=== PATIENT | female | born 1950 | race Caucasian/White ===

== ENCOUNTER 2018-04-25 17:38 | Observation (INO) | payer MEDICARE, OTHER ==
--- NOTE | 2018-04-25 19:09 | RAD ---
PORTABLE CHEST: 04/25/18 HISTORY: Pain, status post fall. Heart size and mediastinum are within normal limits. Lungs are clear of any infiltrates. I do not afshin reciate any rib fractures. IMPRESSION: No active intrathoracic disease. POS: [facility]
[2018-04-25 19:29] LABS: #Basophils 0.1 thou/uL (0.0-0.2); #Eosinphils 0.1 thou/uL (0.0-0.7); #Lymphocytes 0.8 thou/uL (1.20-3.40); #Monocytes 0.7 thou/uL (0.11-0.59); #Neutrophils 12.8 thou/uL (1.40-6.50); %Basophils 0.4 % (0.0-1.0); %Eosinophils 0.4 % (0.0-10.0); %Lymphocytes 5.2 % (21.0-51.0); %Monocytes 4.9 % (0.0-10.0); Hemoglobin 11.7 g/dL (12.0-16.0); Mean Corpuscular HGB CONC 34.2 g/dL (32.0-36.0); Mean Corpuscular Hemoglobin 32.3 pg (27.0-31.0); Mean Corpuscular Volume 94.4 fL (78.0-98.0); Mean Platelet Volume 8.1 fL (7.4-10.4); Platelet Count 202 thou/uL (130-400); RBC Distribution Width 11.7 % (11.5-14.5); Red Blood Cell (RBC) Count 3.63 mill/uL (4.20-5.40); White Blood Cell (WBC) Count 14.4 thou/uL (4.8-10.8)
--- NOTE | 2018-04-25 19:33 | RAD ---
LEFT KNEE FOUR VIEWS: 04/25/18 HISTORY: Fall while walking across a cattle guard. Knee pain. There are some arthritic changes of the knee. Very small joint effusion present. On the cross-table lateral view, there is some irregularity to one of the anterior margin of one of the femoral condyles . It is probably at least partially projectional. Possibility there has been some type of impaction i njury should be considered. Minimal if any joint effusion is present. It is difficult on any of the a dditional projections to show this abnormality as to whether it originates on the medial or lateral s meseret. IMPRESSION: Lack of a normal spherical contour to one of the anterior femoral condyles raising the possibility of some type of impaction type injury. There is questionable minimal joint effusion present. If interna l derangement is clinically suspected, MRI would be helpful in further assessment. Clinical correlati on as to any pain anteriorly that would correspond to these findings. There does appear to be soft ti ssue swelling medially and changes that would suggest a hematoma and therefore the femoral changes ar e more suspicious. POS: [facility]
[2018-04-25 19:36] LABS: PTT 22.9 SEC (22.9-36.1); Prothrombin Time 13.5 SEC (12.0-14.7)
[2018-04-25] MEDS ORDERED: Morphine 4 MG/ML VIAL ONE (19:37)
[2018-04-25 19:50] LABS: ALT (SGPT) 9 U/L (8-55); AST (SGOT) 12 U/L (5-34); Albumin 3.6 g/dL (3.4-4.8); Alkaline Phosphatase 69 U/L (40-150); Anion Gap 13 mmol/L (10-20); BUN (Urea Nitrogen) 11 mg/dL (9.8-20.1); Bilirubin, Total 0.4 mg/dL (0.2-1.2); Calc. Creatinine Clearance 0 mL/min (70-130); Calcium 8.8 mg/dL (7.8-10.44); Carbon Dioxide 24 mmol/L (23-31); Chloride 102 mmol/L (98-107); Estimated GFR-MDRD 75; Globulin 2.2 g/dL (2.4-3.5); Glucose 192 mg/dL (80-115); Protein, Total 5.8 g/dL (6.0-8.3); Sodium 135 mmol/L (136-145)
--- NOTE | 2018-04-25 21:22 | CT ---
CT OF BRAIN PERFORMED WITHOUT CONTRAST ENHANCEMENT: 04/25/18 HISTORY: Syncopal episode. Status post fall. Some generalized ventricular and sulcal prominence. There is no signs of intracerebral hemorrhage or extra-axial fluid collections. The mastoid air cells and visualized sinuses are clear. IMPRESSION: No acute intracranial abnormalities. POS: [facility]
[2018-04-25] MEDS ORDERED: Ketorolac Tromethamine 30 MG/ML VIAL ONE (22:02)
[2018-04-25] MEDS ORDERED: Sodium Chloride 0.9% 1,000 ML IV SCH (23:15)
[2018-04-25] MEDS ORDERED: Ondansetron PF 4 MG/2 ML Vial IVP PRN (23:15)
[2018-04-25] MEDS ORDERED: Ondansetron ODT 4 MG TAB SL PRN (23:15)
[2018-04-25] MEDS ORDERED: Acetaminophen 325 MG TAB PO PRN (23:15)
[2018-04-25 23:50] VITALS: BMI 25.9
[2018-04-25 23:54] LABS: Lactic Acid 2.9 mmol/L (0.5-2.2)
[2018-04-26] MEDS ORDERED: Dextrose 5% in Water 1,000 ML IV PRN ×2 (01:15→08:37)
[2018-04-26] MEDS ORDERED: Dextrose 50% Abboject 50 ML SYRINGE SLOW IVP PRN ×2 (01:15→08:37)
[2018-04-26] MEDS ORDERED: HumaLOG 300 UNITS/3 ML VIAL SC PRN (01:15)
[2018-04-26] MEDS ORDERED: HYDROcodone/Acetaminophen 5/325 mg Tablet PO PRN ×2 (01:16)
[2018-04-26] MEDS ORDERED: metFORMIN XR 500 MG TAB PO SCH (08:00)
[2018-04-26] MEDS ORDERED: Lisinopril 10 MG TAB PO SCH (09:00)
[2018-04-26] MEDS ORDERED: PARoxetine 20 MG TAB PO SCH (09:00)
[2018-04-26] MEDS ORDERED: busPIRone HCl 5 MG TAB PO SCH (09:00)
[2018-04-26 10:37] LABS: #Eosinphils 0.2 thou/uL (0.0-0.7); #Lymphocytes 1.2 thou/uL (1.20-3.40); #Monocytes 0.5 thou/uL (0.11-0.59); #Neutrophils 2.8 thou/uL (1.40-6.50); %Basophils 0.4 % (0.0-1.0); %Eosinophils 4.2 % (0.0-10.0); %Lymphocytes 25.7 % (21.0-51.0); %Neutrophils 59.7 % (42.0-75.0); Hemoglobin 9.5 g/dL (12.0-16.0); Mean Corpuscular HGB CONC 34.6 g/dL (32.0-36.0); Mean Corpuscular Hemoglobin 33.1 pg (27.0-31.0); Mean Corpuscular Volume 95.6 fL (78.0-98.0); Mean Platelet Volume 8.4 fL (7.4-10.4); Platelet Count 142 thou/uL (130-400); RBC Distribution Width 11.8 % (11.5-14.5); Red Blood Cell (RBC) Count 2.87 mill/uL (4.20-5.40); White Blood Cell (WBC) Count 4.6 thou/uL (4.8-10.8)
[2018-04-26 10:44] LABS: Lactic Acid 2.3 mmol/L (0.5-2.2)
[2018-04-26 10:51] LABS: ALT (SGPT) 9 U/L (8-55); AST (SGOT) 13 U/L (5-34); Albumin 3.3 g/dL (3.4-4.8); Alkaline Phosphatase 63 U/L (40-150); Anion Gap 12 mmol/L (10-20); BUN (Urea Nitrogen) 8 mg/dL (9.8-20.1); Bilirubin, Total 0.6 mg/dL (0.2-1.2); Calc. Creatinine Clearance 90 mL/min (70-130); Calcium 8.5 mg/dL (7.8-10.44); Carbon Dioxide 25 mmol/L (23-31); Chloride 102 mmol/L (98-107); Estimated GFR-MDRD 83; Globulin 1.9 g/dL (2.4-3.5); Glucose 209 mg/dL (80-115); Potassium 3.5 mmol/L (3.5-5.1); Protein, Total 5.2 g/dL (6.0-8.3); Sodium 135 mmol/L (136-145)
[2018-04-26] MEDS ORDERED: Acetaminophen 325 MG TAB PO PRN (11:24)
[2018-04-26 11:36] LABS: Bilirubin Negative (Negative); Blood, Urine Negative (Negative); Clarity CLEAR (Clear); Glucose, Urine (Dipstick) 100 mg/dL (Negative); Leukocyte Negative (Negative); Nitrite Negative (Negative); Protein, Urine (Dipstick) Negative (Neg-Trace); Specific Gravity, Urine 1.009 (1.002-1.036)
--- NOTE | 2018-04-26 11:36 | PDOC.EVN ---
Event Note - Event Note Event Note: I have seen pt bedside and examined, history obtained from her, I have discussed plan with D[facility] [employer], please see her note for more details
[2018-04-26] MEDS ORDERED: traMADol HCl 50 MG TAB PO PRN ×2 (11:41)
--- NOTE | 2018-04-26 12:46 | CON ---
DATE OF CONSULTATION: HISTORY OF PRESENT ILLNESS: The patient was in her normal state of health. Yesterday, when she was carrying something over a cattleguard and fell. She was unsure how she landed. She landed but has significant left knee and medial lower extremity pain. She also has quite a bit of edema there. Currently, she is in a knee immobilizer, which she states it helps. She has been using a walker, which she feels comfortable getting around on. She is concerned she has some sick animals at home that she tend to, but she does live alone. She denies any numbness or tingling in her feet. Apparently, per EMS, she did pass out in her house once in there due to significant pain. Currently, she is oriented, answering questions well, has no neurological issues. PAST MEDICAL HISTORY: Positive for diabetes, hyperlipidemia, high cholesterol, hypertension. PAST SURGICAL HISTORY: section x2, wisdom teeth, and hysterectomy. PAST PSYCHIATRIC HISTORY: Includes some mild depression. SOCIAL HISTORY: Resides alone. No alcohol or nicotine products. No drug use. FAMILY HISTORY: Healthy. ALLERGIES: NO KNOWN DRUG ALLERGIES. CURRENT MEDICATIONS: 1. Metformin. 2. Insulin pen needle. 3. Lisinopril. 4. Paroxetine. 5. Atorvastatin. REVIEW OF SYSTEMS: Healthy female other than diabetes, which has been controlled and hypertension. Her main concern right now is significant left lower extremity pain. Rest of review of systemsis negative. PHYSICAL EXAMINATION: GENERAL: Well-nourished, well-developed female, resting in bed currently, in no acute distress. Speech is clear. Affect pleasant. Answer questions appropriately. She is alert and oriented x3. HEENT: Normal exam. Face symmetric. Tongue midline. NECK: Supple. Trachea midline. EXTREMITIES: Upper extremities are equal size, shape, symmetry, normal bulk and tone. Movement equal. Pulses sensation equal. Lower extremities, obvious edema to the left knee, also down into the lower extremity. DP pulses are equal and symmetric as well as sensations. Palpation of knee is significantly painful as is medial tibial ridge region in the lower extremity. Knee by exam, she is quite guarded. Feels stable, but she has again lot of pain. IMAGING STUDIES: X-rays show a spherical impaction looking injury and an effusion. I reviewed these with Dr. Lopez. ASSESSMENT: Left knee pain secondary to fall, possible impaction to the condyle injury. PLAN: Pain control mostly. The patient really would like to get out of here and take care of her animals. My concern is she lives alone, but she states she has family and neighbors closeby who can help her out. We would like to see her back in a couple of weeks, however, keep the knee immobilizer on. I did order new x-rays of the tib-fib region just to make sure there is nothing going on down the lower leg. If that is negative, then she could probably be discharged later today. I also added some tramadol to her pain regime to see if that helps. As far as Ortho is concerned currently, she can discontinue it after the x-rays are negative and follow up with Dr. Lopez in 2 weeks. Job ID: [id number]
--- NOTE | 2018-04-26 13:35 | RAD ---
FRONTAL AND LATERAL IMAGING OF THE LEFT TIBIA AND FIBULA: Date: 04/26/18 COMPARISON: None. HISTORY: Injury, trauma, pain, fall. FINDINGS: No fracture or evidence of dislocation. IMPRESSION: No acute osseous abnormality. POS: [facility]
[2018-04-26 17:03] VITALS: BP 145/66; TEMP 98.2
[2018-04-26] MEDS ORDERED: LEVEMIR SC SCH (21:00)
[2018-04-26] MEDS ORDERED: Atorvastatin Calcium 20 MG TAB PO SCH (21:00)
--- NOTE | 2018-04-27 06:23 | SS ---
DATE OF ADMISSION: 04/25/2018 DATE OF DISCHARGE: 04/26/2018 PRIMARY CARE PHYSICIAN: None. CHROMOSOMAL DISORDERS COUNSELOR: Daryl Cunningham. PROCEDURES: 1. Brain CT; no acute intracranial abnormalities. 2. Left knee 4-view; lack of a normal spherical contour. Anterior femoral condyles raising the possibility of some type of impaction-type injury. MRI would be helpful. Clinical correlation, has had anterior pain that correspond with these findings. Soft tissue swelling medially and changes that would be suggestive of a hematoma. The patient also had a chest x-ray, no active intrathoracic disease. Left tibia-fibula x-ray that showed no acute abnormality. HOSPITAL COURSE: Ms. Russell is a pleasant 67-year-old female who presented to the emergency room on day of admission after she had fallen while trying to walk across a cattle guard. Family reports the patient passed out from the pain. The patient reports that she received some nausea medications from the EMS. The patient reports that she is unable to bend the leg. Associated with inability to ambulate in the emergency room. The patient was given a knee immobilizer and crutches. The patient was unable to ambulate in the emergency room and evidently had a syncopal episode when trying to do so, so the patient was admitted for further workup and an orthopedic consult. The patient was given pain medications and some fluids. Initial CBC with white blood cell count of 14.4, which is improved today at 4.6 and hemoglobin 11.7 and 9.5 today. Kamran Larry from Orthopedic saw the patient, ordered a tib-fib x-ray, which was negative; recommended a walker for ambulation and pain medication, should wear knee immobilizer for the next couple weeks and to follow up with Dr. Lopez in the next 2 weeks. X-rays were reviewed with Dr. Lopez who agreed to a spherical impaction injury with an effusion with an assessment of the left knee pain secondary to fall, possible impaction to the condyle. The patient was evaluated by Physical Therapy, crutch instruction was given; it was decided the patient ambulated better with a walker. The patient was able to acquire one prior to discharge. The patient was very anxious to return home as she has several animals that require medication. Pain was improved after pain medication today, so the patient was discharged home with strict instructions to keep the knee immobilizer on except when showering and to use a walker with ambulation, and to follow up with Dr. Lopez in the next 2 weeks. PAST MEDICAL HISTORY: Includes history of diabetes type 2, hyperlipidemia, high cholesterol, and hypertension. PAST SURGICAL HISTORY: Female surgical history includes x2 and hysterectomy. PSYCHIATRIC HISTORY: Includes depression and anxiety. SOCIAL HISTORY: The patient lives alone. Denies any alcohol or drug use. No smoking history. ALLERGIES: THE PATIENT HAS NO KNOWN DRUG ALLERGIES. HOME MEDICATIONS: Include: 1. Atorvastatin 20 mg p.o. at bedtime. 2. BuSpar 5 mg p.o. b.i.d. 3. Levemir 26 units subcu at bedtime. 4. Lisinopril 10 mg p.o. daily. 5. Metformin 1000 mg p.o. b.i.d. 6. Paroxetine 40 mg p.o. daily. On discharge, we added Tramadol 50 mg p.o. q.4. Instructed may take that with her Tylenol 650 mg q.4 p.r.n. as needed for pain. REVIEW OF SYSTEMS: The patient had left knee pain, pain and swelling to both upper and lower left leg. Range of motion was limited due to pain. Ecchymosis was noted to anterior left knee and left avila. The patient denied any dizziness, any chest pain, palpitations, shortness of breath, abdominal pain, nausea, vomiting, or diarrhea. The patient was able to ambulate using the walker to the bathroom several times without any symptoms. All other systems were reviewed and are negative unless mentioned in the hospital course. PHYSICAL EXAMINATION: VITAL SIGNS: Temperature is 98.2, pulse is 98, respirations 16, pulse oximetry is 94% on room air, blood pressure 145/66. CONSTITUTIONAL: The patient appears nontoxic, is alert and oriented to person and time. The patient looks uncomfortable. HEAD: Atraumatic, normocephalic. EYES: Eyelids are normal to inspection. Pupils equally round and reactive to light. Extraocular muscles are intact. ENT: Mouth exam is normal. Mucous membranes are moist. NECK: Normal range of motion. Trachea is midline. RESPIRATORY/CHEST: Breath sounds are clear. No respiratory distress is noted. CARDIOVASCULAR: Regular rate and rhythm and heart rate. Heart sounds are normal. ABDOMEN: Nontender. Bowel sounds are heard. BACK: Normal inspection. Normal range of motion, no tenderness. EXTREMITIES: Upper extremities; normal inspection. Normal range of motion. Sensation is intact. Radial pulses normal bilaterally. Lower extremity; left leg with edema, abrasion, and soft tissue tenderness in medial infrapatellar region and lateral and suprapatellar region with abrasion to the medial aspect. Motor strength is normal. Sensation is intact. Pedal pulses are normal bilaterally. Right leg with normal motor strength, normal sensation, normal inspection. NEUROLOGIC: The patient is oriented to person, place, and time. Speech is normal. Gait is not assessed. Cranial nerves are intact. No focal motor or sensory deficits. SKIN: Warm, dry, and normal in color. PSYCH: Normal affect. DIAGNOSTIC DATA: EKG in the ER shows normal sinus rhythm, beats per minute 91. PERTINENT LABS: White blood cell count 4.6, hemoglobin 9.5, hematocrit 27.4, platelet count 142. Coagulation; PT 13.5, INR 1.0, APTT 22.9. Sodium 135, potassium 3.5, gap is 12, BUN is 8, creatinine is 0.7, estimated GFR is 83, glucose 209, calcium 8.5. Initial lactic acid taken was 3.6 and had decreased to 2.3 by the next day. Liver enzymes are unremarkable. Urine with 100+ glucose, otherwise unremarkable. DISCHARGE CONDITION: The patient's condition is stable. DISPOSITION: The patient will be discharged home. REFERRALS: 1. The patient should follow up with her primary care physician within the next week. 2. She will follow up with Dr. Lopez in the next 2 weeks; should use the knee immobilizer and walker for ambulation. Job ID: [id number]
--- NOTE | 2018-05-02 15:34 | EKG ---
Test Reason : Blood Pressure : / mmHG Vent. Rate : 091 BPM Atrial Rate : 091 BPM P-R Int : 136 ms QRS Dur : 064 ms QT Int : 370 ms P-R-T Axes : 000 005 007 degrees QTc Int : 455 ms Normal sinus rhythm Minimal voltage criteria for LVH, may be normal variant Borderline ECG Confirmed by ANNE BERNAL ([id number]), order editor LA GARCIA ([id number]) on 05/02/2018 3:34:41 PM Referred By: Confirmed By:ANNE BERNAL
== END 2018-04-26 17:29 | disposition home or self-care (01) ==
LOC: ERS 17:38 → 2NO 22:44
PROVIDERS: ADMIT Family Medicine; ATTEND Family Medicine
DX: M25.562 Pain in left knee (principal); I10 Essential (primary) hypertension; E11.9 Type 2 diabetes mellitus without complications; E78.00 Pure hypercholesterolemia, unspecified; F41.9 Anxiety disorder, unspecified; F32.9 Major depressive disorder, single episode, unspecified; Z79.4 Long term (current) use of insulin; Z79.899 Other long term (current) drug therapy; Z98.890 Other specified postprocedural states; W19.XXXA Unspecified fall, initial encounter
CPT/HCPCS: 70450; 71045; 73564; 73590; 80053 ×2; 81003; 82962 ×2; 83605 ×2; 84484; 85025 ×2; 85610; 85652; 85730; 86140; 87040; 87077; 87086; 93005; 94760; 96361; 96374; 96375; 97116; 97139 ×3; 99285; G0378 ×2; G8978; G8979; 36415; 36416; J1885; J2270